=== PATIENT | female | born 1985 | race Two or more races ===

== ENCOUNTER 2017-04-20 22:33 | Emergency (ER) | payer SELFPAY ==
[2017-04-20 22:44] VITALS: BP 150/97
--- NOTE | 2017-04-21 00:50 | ER Document Report ---
ED Medical Screen (RME) - General Chief Complaint: Abdominal Pain Stated Complaint: LUMP ON ARMPIT Time Seen by Provider: 04/21/17 00:27 Mode of Arrival: Ambulatory Information source: Patient Notes: Patient presents complaining of pain to right axilla with swelling for the past month. Patient reports right upper back and neck pain for the past week with pain into the right arm for the past 3 days. Patient additionally reports right lower quadrant abdominal pain with some swelling for the past few months that is started to worsen. Patient denies any urinary symptoms. Patient denies any nausea, vomiting or diarrhea. Patient denies any concerns about . I have greeted and performed a rapid initial assessment of this patient. A comprehensive ED assessment and evaluation of the patient, analysis of test results and completion of the medical decision making process will be conducted by additional ED providers. TRAVEL OUTSIDE OF THE [place] IN LAST 30 DAYS: No - Related Data Allergies/Adverse Reactions: No Known Drug Allergies Allergy (Verified 04/20/17 22:43) Physical Exam - Vital signs Vitals: Temp Pulse Resp BP Pulse Ox 98.4 F 76 16 150/97 H 100 04/20/17 22:43 04/20/17 22:43 04/20/17 22:43 04/20/17 22:43 04/20/17 22:43 - Abdominal Tenderness: Tender - Right lower pelvic tenderness Course - Vital Signs Vital signs: Temp Pulse Resp BP Pulse Ox 98.4 F 76 16 150/97 H 100 04/20/17 22:43 04/20/17 22:43 04/20/17 22:43 04/20/17 22:43 04/20/17 22:43
[2017-04-21 01:59] LABS: ABSOLUTE EOSINOPHILS # (AUTO) 0.3 10^3/uL (0.0-0.6); ABSOLUTE LYMPHOCYTES (AUTO) 3.8 10^3/uL (0.5-4.7); ABSOLUTE MONOCYTES (AUTO) 0.8 10^3/uL (0.1-1.4); ABSOLUTE NEUT (AUTO) 5.3 10^3/uL (1.7-8.2); BASOPHILS % (AUTO) 0.5 % (0-2); EOSINOPHILS % (AUTO) 2.7 % (0-6); HEMATOCRIT 36.7 % (36.0-47.0); HEMOGLOBIN 12.1 g/dL (12.0-15.5); LYMPHOCYTES % (AUTO) 37.3 % (13-45); MEAN CORPUSCULAR HEMOGLOBIN 24.8 pg (27.0-33.4); MEAN CORPUSCULAR HGB CONC 32.9 g/dL (32.0-36.0); MEAN CORPUSCULAR VOLUME 76 fl (80-97); MONOCYTES % (AUTO) 7.4 % (3-13); PLATELET COUNT 214 10^3/uL (150-450); RED BLOOD COUNT 4.86 10^6/uL (3.72-5.28); RED CELL DISTRIBUTION WIDTH 15.4 % (11.5-14.0); SEGMENTED NEUTROPHILS % (AUTO) 52.1 % (42-78); TOTAL CELLS COUNTED % (AUTO) 100 %; WHITE BLOOD COUNT 10.2 10^3/uL (4.0-10.5)
[2017-04-21 02:15] LABS: ALANINE AMINOTRANSFERASE 25 U/L (9-52); ALBUMIN 4.4 g/dL (3.5-5.0); ALKALINE PHOSPHATASE 88 U/L (38-126); ANION GAP 14 (5-19); ASPARTATE AMINO TRANSFERASE 19 U/L (14-36); BILIRUBIN,DIRECT 0.2 mg/dL (0.0-0.4); BILIRUBIN,TOTAL 0.3 mg/dL (0.2-1.3); BLOOD UREA NITROGEN 13 mg/dL (7-20); CALCIUM 9.6 mg/dL (8.4-10.2); CARBON DIOXIDE 26 mmol/L (22-30); CHLORIDE 103 mmol/L (98-107); GLUCOSE 86 mg/dL (75-110); POTASSIUM 3.6 mmol/L (3.6-5.0); SODIUM 142.6 mmol/L (137-145); TOTAL PROTEIN 7.5 g/dL (6.3-8.2)
[2017-04-21 02:16] LABS: APPEARANCE,URINE CLEAR; BILIRUBIN,URINE NEGATIVE (NEGATIVE); COLOR,URINE YELLOW; GLUCOSE, URINE NEGATIVE (NEGATIVE); KETONES,URINE NEGATIVE (NEGATIVE); LEUKOCYTE ESTERASE,URINE NEGATIVE (NEGATIVE); NITRITE,URINE NEGATIVE (NEGATIVE); PROTEIN,URINE NEGATIVE (NEGATIVE); URINE SPECIFIC GRAVITY 1.009; UROBILINOGEN,URINE NEGATIVE mg/dL (<2.0)
--- NOTE | 2017-04-21 03:25 | ER Document Report ---
ED General - General Chief Complaint: Abdominal Pain Stated Complaint: ABDOMINAL PAIN Time Seen by Provider: 04/21/17 00:27 Mode of Arrival: Ambulatory Notes: Patient is a 31-year-old female presents with complaint of this to try to obtain a history review of family however I felt that interpretation was not adequate and therefore I did read obtain a history using the [employer] full time staff interpreter services. I was assisted by full time staff interpreter number [id number]. Patient's first complaint is of pain in the right pelvic region. She says that she still feels as if there is a small area that swells the right pelvic region just before.. This is been ongoing for several months. No abnormal vaginal bleeding. No abnormal discharge. No fevers. No infections. He does follow with a HULL DRAFTER regularly but has not mentioned this to her. Does have a history of a C- section was performed 10 years ago. Patient second complaint is of a pain into her right shoulder. She says she feels as if there is a small knot into her axilla. She has pain is sometimes radiate up and down her arm. She denies any pain or swelling to the breast. She denies any lumps or masses to the breast. No redness to the breast. She has not mentioned this to her women's health doctor either. Patient says that her pain is worse when she moves her shoulder rotates her shoulder and sometimes it causes pain that radiates down her upper arm. No swelling into the arm. No other complaints at this time. TRAVEL OUTSIDE OF THE [place] IN LAST 30 DAYS: No - Related Data Allergies/Adverse Reactions: No Known Drug Allergies Allergy (Verified 04/20/17 22:43) Past Medical History - General Information source: Patient - Social History Smoking Status: Never Smoker Frequency of alcohol use: None Drug Abuse: None Family History: Reviewed & Not Pertinent Patient has suicidal ideation: No Patient has homicidal ideation: No Renal/ Medical History: Denies: Hx Peritoneal Dialysis Review of Systems - Review of Systems Notes: My Normal Review Basic REVIEW OF SYSTEMS: CONSTITUTIONAL : Denies fever, chills, or sweats. Denies recent illness. EENT: Denies eye, ear, throat, or mouth pain or symptoms. Denies nasal or sinus congestion. CARDIOVASCULAR: Denies chest pain. RESPIRATORY: Denies cough, cold, or chest congestion. Denies shortness of breath, difficulty breathing, or wheezing. GASTROINTESTINAL: Denies abdominal pain. Denies nausea, vomiting, or diarrhea. Denies constipation. Last BM: GENITOURINARY: Denies difficulty urinating, painful urination, burning, frequency, or blood in urine. FEMALE GENITOURINARY: Pain in the right lower quadrant abdomen occurs at the beginning of her menstrual periods. No abnormal vaginal discharge or bleeding. MUSCULOSKELETAL: Some pain into the right axilla and into the right shoulder and on the right arm. SKIN: Denies rash or skin lesions. NEUROLOGICAL: Denies altered mental status or loss of consciousness. Denies headache. Denies weakness or paralysis or loss of use of either side. Denies problems with gait or speech. Denies sensory or motor loss. ALL OTHER SYSTEMS REVIEWED AND NEGATIVE. Physical Exam - Vital signs Vitals: Temp Pulse Resp BP Pulse Ox 98.4 F 76 16 150/97 H 100 04/20/17 22:43 04/20/17 22:43 04/20/17 22:43 04/20/17 22:43 04/20/17 22:43 - Notes Notes: General Appearance: Well nourished, alert, cooperative, no acute distress, no obvious discomfort. Well appearing. Vitals: reviewed, See vital signs table. Head: no swelling or tenderness to the head Eyes: PERRL, EOMI, Conjuctiva clear Mouth: No decreasd moisture Lungs: No wheezing, No rales, No rhonci, No accessory muscle use, good air exchange bilaterally. Heart: Normal rate, Regular rythm Abdomen: Normal BS, soft, No rigidity, very minimal pain to palpation of the right pelvic region. I do not feel any knots or area of swelling. I do not feel anything consistent with a hernia., No guarding, no rebound, no abdominal masses, no organomegaly Extremities: strength 5/5 in all extremities, good pulses in all extremities, no palpable lymphadenopathy in the right axilla. She does have any redness or swelling to right axilla. She does have full range of motion of the right shoulder but has some pain in doing so. Skin: warm, dry, appropriate color, no rash Neuro: speech clear, oriented x 3, normal affect, responds appropriately to questions. Course - Re-evaluation Re-evalutation: 04/21/17 05:04 I did review the patient's lab results and test results with the patient using the full time staff interpreter. I also reviewed plan and follow-up with the patient and jher family. I used the [employer] full time staff interpreter service with full time staff interpreter number [id number]. Patient is well-appearing though she is safe to be discharged home. Her right shoulder pain seems to be more muscular skeletal fluid it is worse with range of motion. She does complain of feeling she has some swelling in the axilla. I do not appreciate any swelling in the axilla or abnormal lymphadenopathy. She has not had any lumps or bumps in her breast area. I informed her it still important she has yearly breast exams by . She says she does have a doctor that she goes and sees on a regular basis. Also informed her to return to ER if she has any redness or swelling or lymphadenopathy that is large in the axilla. Also encouraged her follow-up with her doctor for reevaluation of her shoulder and further workup as needed. Patient has pain in the right lower pelvis and lower abdomen. The pain is worse whenever she is that of her menstrual period. I did do ultrasound shows no evidence of ovarian cyst or fibroids. I talked to patient about the possibility of endometriosis being that her pain is cyclical. She also felt as if she has a knot in this area as well. I did very deep palpation all throughout her inguinal area and right lower quadrant. I cannot feel a knot or mass. Nothing suggestive of a hernia. I encouraged her follow-up closely with her primary care doctor for evaluation of this and also talked about follow-up with her oracle developer for evaluation of endometriosis if she continues to have this pain that is associated with her menstrual cycles. Patient encouraged to return to ER if she has severe pain, vomiting, fevers, or feels unwell. Patient agrees with plan and will be discharged home. Dictation of this chart was performed using voice recognition software; therefore, there may be some unintended grammatical errors. - Vital Signs Vital signs: Temp Pulse Resp BP Pulse Ox 98.4 F 76 16 150/97 H 100 04/20/17 22:43 04/20/17 22:43 04/20/17 22:43 04/20/17 22:43 04/20/17 22:43 - Laboratory Result Diagrams: 04/21/17 01:35 04/21/17 01:35 Laboratory results interpreted by me: 04/21/17 04/21/17 01:35 01:35 MCV 76 L MCH 24.8 L RDW 15.4 H Creatinine 0.51 L Discharge - Discharge Clinical Impression: Abdominal pain Qualifiers: Abdominal location: unspecified location Qualified Code(s): R10.9 - Unspecified abdominal pain Shoulder pain, right Qualifiers: Chronicity: unspecified Qualified Code(s): M25.511 - Pain in right shoulder Condition: Good Disposition: HOME, SELF-CARE Additional Instructions: We performed an x-ray of the shoulder. There are no signs of injury to the bone that make up the shoulder. Being that you have worsening pain with movement of the shoulder you may have a shoulder strain. If this continues may eventually need an MRI of your shoulder. I did not palpate any enlarged lymph nodes in your axilla. It is important that if you start to have swelling or enlarged lymph nodes in the armpit that you follow-up closely with your doctor so they can reevaluate. You should have yearly breast exams performed. We also performed an ultrasound. No evidence of ovarian cyst or fibroid tumors. You have right-sided pelvic pain that is worse in conjunction with her cycles. This sometimes can suggest endometriosis. Please follow-up with your oracle developer in regards to further workup and treatment of your current pain. If you develop swelling or redness to the right pelvic area you should return to the ER for evaluation. Please return if you have fevers or hard knots of your right lower abdomen that will not go away.
[2017-04-21 03:28] LABS: CHLAM PCR NOT DETECTED (NOT DETECT); GON PCR NOT DETECTED (NOT DETECT)
--- NOTE | 2017-04-21 04:01 | RADIOLOGY REPORT (SQ) ---
EXAM DESCRIPTION: U/S NON-OB PELVIS TV W/O DOP CLINICAL HISTORY: 31 years Female, right sided pelvic pain COMPARISON: None. TECHNIQUE: Complete pelvic ultrasound with transvaginal imaging. FINDINGS: The uterus measures 10.4 x 5.4 x 6.6 cm. Endometrial thickness of 0.5 cm. Cervical length of 3.5 cm. No myometrial abnormalities. No free pelvic fluid. The right ovary measures 4.5 x 2.9 x 2.6 cm. The left ovary measures 3.7 x 2.6 x 2.6 cm. Limited color and spectral Doppler imaging of the ovaries demonstrates flow bilaterally. IMPRESSION: 1. No sonographic abnormality in the pelvis identified. .
--- NOTE | 2017-04-21 04:26 | RADIOLOGY REPORT (SQ) ---
EXAM DESCRIPTION: SHOULDER RIGHT 2 OR MORE VIEWS CLINICAL HISTORY: right shoulder pain COMPARISON: None. FINDINGS: 3 views of the right shoulder. No acute fracture or dislocation. Normal osseous mineralization. No widening of the acromioclavicular joint. Right ribs appear intact. No right-sided pneumothorax. IMPRESSION: No acute fracture or dislocation.
== END 2017-04-21 05:08 | disposition home or self-care (01) ==
LOC: ER 22:33
DX: R10.9 Unspecified abdominal pain (principal); M25.511 Pain in right shoulder; R10.2 Pelvic and perineal pain; M79.601 Pain in right arm
CPT/HCPCS: 36415; 76830; 80053; 81001; 84703; 85025; 87491; 87591; 99284

== ENCOUNTER 2017-06-07 01:13 | Emergency (ER) | payer SELFPAY ==
[2017-06-07] MEDS ORDERED: ONDANSETRON HCL INJ/PF 4 MG/2 ML SDV IV ONE (01:49)
[2017-06-07] MEDS ORDERED: ACETAMINOPHEN 325 MG TABLET PO ONE (01:49)
[2017-06-07] MEDS ORDERED: NORMAL SALINE 1000 ML 1,000 ML IV ONE (01:49)
--- NOTE | 2017-06-07 02:02 | ER Document Report ---
ED General - General Chief Complaint: Vomiting Stated Complaint: FEVER,VOMITING Time Seen by Provider: 06/07/17 01:49 Notes: Patient is a 31-year-old female without past medical history, sections no additional past surgical history, who presents with 24 hours of epigastric abdominal pain and vomiting. Patient states that at approximately 3 AM the morning, she woke up with an epigastric abdominal pain that she describes as a dull, aching, constant pain. She notes that vomiting makes the pain worse. Nothing improves the pain. She denies any history of similar symptoms in the past. No known sick contacts. She denies any diarrhea, cough, sputum production, headache, neck pain, or lower abdominal pain. She has passed flatus and had a bowel movement today without difficulty. She has not seen her primary care doctor regarding today's concerns. The history and physical exam was obtained by the provider using Hungarian. A formal hospital earthmoving plant operator was offered to the patient and any family at the bedside at the beginning of the encounter and was declined. TRAVEL OUTSIDE OF THE [place] IN LAST 30 DAYS: No - Related Data Allergies/Adverse Reactions: No Known Drug Allergies Allergy (Verified 06/07/17 02:19) Past Medical History - General Information source: Patient - Social History Smoking Status: Never Smoker Cigarette use (# per day): No Frequency of alcohol use: None Drug Abuse: None Lives with: Spouse/Significant other Family History: Reviewed & Not Pertinent Renal/ Medical History: Denies: Hx Peritoneal Dialysis Review of Systems - Review of Systems Notes: Constitutional: Positive for subjective fever HENT: Negative for sore throat. Eyes: Negative for visual changes. Cardiovascular: Negative for chest pain. Respiratory: Negative for shortness of breath. Gastrointestinal: Positive for abdominal pain and vomiting Genitourinary: Negative for dysuria. Musculoskeletal: Negative for back pain. Skin: Negative for rash. Neurological: Negative for headaches, weakness or numbness. 10 point ROS negative except as marked above and in HPI. Physical Exam - Vital signs Vitals: Temp Pulse Resp BP Pulse Ox 100 F 98 18 139/84 H 97 06/07/17 01:18 06/07/17 01:18 06/07/17 01:18 06/07/17 01:18 06/07/17 01:18 Interpretation: Normal Notes: PHYSICAL EXAMINATION: GENERAL: Well-appearing, well-nourished and in no acute distress. HEAD: Atraumatic, normocephalic. EYES: Pupils equal round and reactive to light, extraocular movements intact, sclera anicteric, conjunctiva are normal. ENT: nares patent, oropharynx clear without exudates. Moderately dry mucous membranes. NECK: Normal range of motion, supple without lymphadenopathy LUNGS: Breath sounds clear to auscultation bilaterally and equal. No wheezes rales or rhonchi. HEART: Regular rate and rhythm without murmurs ABDOMEN: Soft, mild epigastric abdominal tenderness to palpation but no other localized areas of tenderness, normoactive bowel sounds. No guarding, no rebound. No masses appreciated. EXTREMITIES: Normal range of motion, no pitting or edema. No cyanosis. NEUROLOGICAL: No focal neurological deficits. Moves all extremities spontaneously and on command. PSYCH: Normal mood, normal affect. SKIN: Warm, Dry, normal turgor, no rashes or lesions noted. Course - Re-evaluation Re-evalutation: 06/07/17 02:00 Patient presents with report of subjective fever, obvious abdominal pain and vomiting. Patient is overall very well in appearance, vitals within normal limits at time of my assessment, patient does appear mildly dehydrated but otherwise overall very well in appearance. Abdominal examination patient has some mild epigastric abdominal discomfort but no other localized areas of tenderness. Bedside right upper quadrant ultrasound does not demonstrate any evidence of acute cholecystitis though any gallbladder wall thickening, pericholecystic fluid or stones in the gallbladder. Differential diagnosis includes an acute viral etiology, acute pancreatitis, acute hepatitis, or regionalized colitis. Very low clinical suspicion for anything such as an acute appendicitis that she has no lower abdominal discomfort. Patient does not have any CVA tenderness but does note some dysuria and pyelonephritis could account for both vomiting, subjective fever and dysuria. Will proceed with labs , IV rehydration, IV antiemetics and reassess the patient. 06/07/17 02:50 Labs are unremarkable, no additional vomiting, patient feels improved. Repeat abdominal exam remains benign. At this time the exact etiology of the patient' s symptoms is uncertain but is likely secondary to a viral etiology. At this time will discharge with return precautions and follow-up recommendations. Verbal discharge instructions given a the bedside and opportunity for questions given. Medication warnings reviewed. Patient is in agreement with this plan and has verbalized understanding of return precautions and the need for primary care follow-up in the next 24-72 hours. - Vital Signs Vital signs: Temp Pulse Resp BP Pulse Ox 100 F 98 18 139/84 H 97 06/07/17 01:18 06/07/17 01:18 06/07/17 01:18 06/07/17 01:18 06/07/17 01:18 - Laboratory Result Diagrams: 06/07/17 02:10 06/07/17 02:10 Laboratory results interpreted by me: 06/07/17 06/07/17 02:07 02:10 MCV 75 L MCH 24.6 L RDW 15.4 H Urine Blood SMALL H Ur Leukocyte Esterase TRACE H Discharge - Discharge Clinical Impression: Epigastric abdominal pain Vomiting Qualifiers: Vomiting type: unspecified Vomiting Intractability: non-intractable Nausea presence: with nausea Qualified Code(s): R11.2 - Nausea with vomiting, unspecified Condition: Good Disposition: HOME, SELF-CARE Additional Instructions: You have been seen in the Emergency Department (ED) today for nausea and vomiting. Your work up today has not shown a clear cause for your symptoms. You have been prescribed Zofran; please use as prescribed as needed for your nausea. Follow up with your doctor as soon as possible regarding today's emergent visit and your symptoms of nausea. Return to the Emergency Department (ED) if you develop abdominal pain, bloody vomiting, bloody diarrhea, if you are unable to tolerate fluids due to vomiting , or if you develop other symptoms that concern you.
[2017-06-07 02:26] LABS: ABSOLUTE LYMPHOCYTES (AUTO) 1.5 10^3/uL (0.5-4.7); ABSOLUTE MONOCYTES (AUTO) 0.6 10^3/uL (0.1-1.4); ABSOLUTE NEUT (AUTO) 5.1 10^3/uL (1.7-8.2); BASOPHILS % (AUTO) 0.3 % (0-2); EOSINOPHILS % (AUTO) 0.2 % (0-6); HEMATOCRIT 37.4 % (36.0-47.0); HEMOGLOBIN 12.2 g/dL (12.0-15.5); LYMPHOCYTES % (AUTO) 20.7 % (13-45); MEAN CORPUSCULAR HEMOGLOBIN 24.6 pg (27.0-33.4); MEAN CORPUSCULAR HGB CONC 32.7 g/dL (32.0-36.0); MEAN CORPUSCULAR VOLUME 75 fl (80-97); MONOCYTES % (AUTO) 8.5 % (3-13); PLATELET COUNT 208 10^3/uL (150-450); RED BLOOD COUNT 4.97 10^6/uL (3.72-5.28); RED CELL DISTRIBUTION WIDTH 15.4 % (11.5-14.0); SEGMENTED NEUTROPHILS % (AUTO) 70.3 % (42-78); TOTAL CELLS COUNTED % (AUTO) 100 %; WHITE BLOOD COUNT 7.3 10^3/uL (4.0-10.5)
[2017-06-07 02:26] LABS: APPEARANCE,URINE CLEAR; BILIRUBIN,URINE NEGATIVE (NEGATIVE); COLOR,URINE YELLOW; GLUCOSE, URINE NEGATIVE (NEGATIVE); KETONES,URINE NEGATIVE (NEGATIVE); LEUKOCYTE ESTERASE,URINE TRACE (NEGATIVE); NITRITE,URINE NEGATIVE (NEGATIVE); PROTEIN,URINE NEGATIVE (NEGATIVE); URINE SPECIFIC GRAVITY 1.006; UROBILINOGEN,URINE NEGATIVE mg/dL (<2.0)
[2017-06-07 02:47] LABS: ALANINE AMINOTRANSFERASE 31 U/L (9-52); ALBUMIN 4.6 g/dL (3.5-5.0); ALKALINE PHOSPHATASE 107 U/L (38-126); ANION GAP 9 (5-19); ASPARTATE AMINO TRANSFERASE 22 U/L (14-36); BILIRUBIN,DIRECT 0.3 mg/dL (0.0-0.4); BILIRUBIN,TOTAL 0.7 mg/dL (0.2-1.3); BLOOD UREA NITROGEN 12 mg/dL (7-20); CALCIUM 9.2 mg/dL (8.4-10.2); CARBON DIOXIDE 25 mmol/L (22-30); CHLORIDE 104 mmol/L (98-107); GLUCOSE 100 mg/dL (75-110); LIPASE 82.2 U/L (23-300); POTASSIUM 3.8 mmol/L (3.6-5.0); SODIUM 137.8 mmol/L (137-145); TOTAL PROTEIN 8.2 g/dL (6.3-8.2)
[2017-06-07] MEDS ORDERED: ONDANSETRON ODT 4 MG TAB (6 TAB/ER DISP) PO PRN (02:50)
[2017-06-07 03:08] VITALS: BP 131/78
== END 2017-06-07 03:06 | disposition home or self-care (01) ==
LOC: ER 01:13
DX: R10.13 Epigastric pain (principal); R11.10 Vomiting, unspecified; R30.0 Dysuria
CPT/HCPCS: 99283; 96361; 96374; 36415; 83690; 85025; 81025; 80053; 81001; J2405; J7030